=== PATIENT | female | born 1970 | race Caucasian/White ===

== ENCOUNTER 2017-01-31 21:48 | Emergency (ER) | payer OTHER ==
[2017-01-31 22:00] VITALS: PULSE 98; RESP 18
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
--- NOTE | 2017-01-31 23:31 | CT ---
EXAM: CT Head Without Intravenous Contrast CLINICAL HISTORY: Reason: Pain TECHNIQUE: Axial computed tomography images of the head/brain without intravenous contrast. CTDI is 57.4 DLP is 2309.90 mGy-cm. This CT exam was performed using one or more of the following dose reduction techniques: automated exposure control, adjustment of the mA and/or kV according to patient size, and/or use of iterative reconstruction technique. Coronal and sagittal reformatted images were created and reviewed. COMPARISON: None FINDINGS: Brain: No evolving territorial infarction. No hemorrhage. Minimal white matter disease. No edema. Ventricles: Unremarkable. No ventriculomegaly. Bones/joints: Unremarkable. No acute fracture. Soft tissues: Unremarkable. Sinuses: Mild mucosal thickening right maxillary sinus. Mastoid air cells: Unremarkable as visualized. No mastoid effusion. IMPRESSION: No acute findings. Minimal chronic small vessel ischemic change. EXAM: CT C Spine Without Intravenous Contrast CLINICAL HISTORY: Reason: Pain TECHNIQUE: Axial computed tomography images of the c spine without intravenous contrast. DLP is 323 mGy-cm. This CT exam was performed using one or more of the following dose reduction techniques: automated exposure control, adjustment of the mA and/or kV according to patient size, and/or use of iterative reconstruction technique. Coronal and sagittal reformatted images were created and reviewed. COMPARISON: None FINDINGS: No evidence of fracture acute subluxation. Mild multilevel cervical spondylosis. Minimal retrolisthesis of C5 over C6 which appears to be degenerative. Disc osteophyte complex also seen at that level as well as C3/C4. Soft tissues unremarkable. IMPRESSION: No fracture or acute subluxation.
[2017-01-31 23:54] VITALS: BP 114/70; TEMP 98.5
== END 2017-01-31 23:53 | disposition home or self-care (01) ==
LOC: EC 21:48
DX: S00.03XA Contusion of scalp, initial encounter (principal); F10.129 Alcohol abuse with intoxication, unspecified; F32.9 Major depressive disorder, single episode, unspecified; F41.9 Anxiety disorder, unspecified; F17.200 Nicotine dependence, unspecified, uncomplicated; Z79.899 Other long term (current) drug therapy; Z88.2 Allergy status to sulfonamides; V47.5XXA Car driver injured in collision with fixed or stationary object in traffic accident, initial encounter; Y92.410 Unspecified street and highway as the place of occurrence of the external cause
CPT/HCPCS: 70450; 72125; 99284